=== PATIENT | male | born 1955 | race Two or more races ===

== ENCOUNTER 2018-01-17 11:30 | Emergency (ER) | payer MEDICAID ==
[~2018-01-17] VITALS: Ht 167.6 cm; Wt 68.0 kg
[2018-01-17 11:51] VITALS: BP 149/73
[2018-01-17 12:39] LABS: HEMATOCRIT 38.1 % (42.0-52.0); HEMOGLOBIN 11.3 G/DL (14.2-18.0); MEAN CORPUSCULAR VOLUME 68 FL (80-99); PLATELET COUNT 154 K/UL (150-450); RED BLOOD COUNT 5.57 M/UL (4.70-6.10); RED CELL DISTRIBUTION WIDTH 14.9 % (11.6-14.8); WHITE BLOOD COUNT 11.8 K/UL (4.8-10.8)
[2018-01-17] MEDS ORDERED: levETIRAcetam 1,000mg/NS100ml 100 ML IVPB ONE (12:45)
--- NOTE | 2018-01-17 12:53 | Diagnostic Imaging Report ---
Indications: Altered mental status Technique: Spiral acquisitions obtained through the brain. Angled axial and coronal 5 x 5 mm slices were reconstructed. Total dose length product 1418.31 mGycm. CTDI vol(s) 70.38 mGy. Dose reduction achieved using automated exposure control Comparison: None. Findings: There is a large intraparenchymal hematoma in the left temporal lobe. This measures 4.1 cm in length by 2.7 cm AP by approximately 4.2 cm craniocaudad. This demonstrates mostly high attenuation but slightly mixed attenuation. There is considerable surrounding edema. There is a small amount of subarachnoid blood lateral to the sella turcica and lateral and posterior to the midbrain. A thin tract of blood from the superior aspect of the hemorrhage extends medial probably represents the point of rupture into the basilar cisterns. There is considerable surrounding edema. There is mass effect, with compression of most of the left lateral ventricle and its lateral sulci. There is approximately 3 mm of [id number] midline shift. No other acute hemorrhage demonstrated. Peripheral to the temporal bleed, there is a thin rim of acute high attenuation subdural blood which measures approximately 3 mm thick. This extends over much of the left convexity, reaching near the vertex There is underlying mass effect from this with attenuation of the ipsilateral sulci. There is very minimal enlargement of the ventricles and extra-axial CSF spaces on the right. There is minimal periventricular deep white matter low-attenuation. Small amount of subdural blood is also seen over the left tentorium The calvarium is intact. The mastoids are clear. The orbits and sinuses are unremarkable. Impression: 4 x 1 x 2.7 x 4.2 cm intraparenchymal hemorrhage within the left temporal lobe, with considerable surrounding edema. Somewhat mixed attenuation of the blood component as well as the extent of the edema suggests this could be subacute rather than acute. Appearance is characteristic of a hypertensive bleed, but location in the middle fossa and presence of a separate subdural hemorrhage (see below) raises the possibility that this could be an unusual hemorrhagic contusion. There is mass effect manifested primarily by attenuation of the sulci and ipsilateral lateral ventricle, and a small amount (3 mm) of midline shift. Small amount of subarachnoid blood in the basilar cisterns lateral to the mid brain and sella on the left, presumably from medial rupture into the subarachnoid space of the temporal bleed Left convexity subdural hematoma, measuring up to 3 mm thick. This extends from the middle fossa to near the vertex, and also slightly extends over the tentorium. Mass effect is manifested by attenuation of the left lateral sulci Mild age-related volume loss and chronic periventricular deep white matter ischemic changes Critical value report phoned to Dr. Garcia in the emergency room at the time of interpretation The CT scanner at [facility] is accredited by the [employer] and the scans are performed using protocols designed to limit radiation exposure to as low as reasonably achievable to attain images of sufficient resolution adequate for diagnostic evaluation.
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
[2018-01-17 13:03] LABS: ANION GAP 10 mmol/L (5-15); BLOOD UREA NITROGEN 9 mg/dL (7-18); CALCIUM 8.6 MG/DL (8.5-10.1); CARBON DIOXIDE 24 MMOL/L (21-32); CHLORIDE 93 MMOL/L (98-107); CREATININE 0.8 MG/DL (0.55-1.30); SODIUM 127 MMOL/L (136-145)
[2018-01-17 13:07] LABS: ALANINE AMINOTRANSFERASE 31 U/L (12-78); ALBUMIN 3.5 G/DL (3.4-5.0); ALBUMIN/GLOBULIN RATIO 0.9 (1.0-2.7); ALKALINE PHOSPHATASE 57 U/L (46-116); ASPARTATE AMINO TRANSFERASE 19 U/L (15-37)
[2018-01-17] MEDS ORDERED: Mannitol 20% IV 500 ML IV ONE ×2 (13:15→13:45)
[2018-01-17 13:31] VITALS: BP 139/71
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
[2018-01-17 14:05] VITALS: BP 135/85
[2018-01-17 14:42] LABS: AMMONIA 50 umol/L (11-32)
== END 2018-01-17 14:05 | disposition short-term general hospital (02) ==
LOC: EMR 12:05
DX: I61.8 Other nontraumatic intracerebral hemorrhage (principal); I62.00 Nontraumatic subdural hemorrhage, unspecified
CPT/HCPCS: 36415; 70450; 70486; 80053; 80307; 80329; 82140; 82962; 84484; 85007; 85025; 85610; 85730; 86850; 86900; 86901; 96361; 96374; 99291; J1953; J2150